=== PATIENT | female | born 1995 | race Caucasian/White ===

== ENCOUNTER 2024-04-02 09:47 | Emergency (ER) | payer BC, SELFPAY ==
--- NOTE | ~2024-04-02 | XR_ITS ---
EXAMINATION: XR ABDOMEN KUB CLINICAL INDICATION: Pain, constipation COMPARISON: None available. TECHNIQUE: AP view of the abdomen. FINDINGS: Moderate colonic stool. Nonobstructing bowel pattern. No suspicious calcification. XR/XR KUB IMPRESSION: Moderate colonic stool. Nonobstructing bowel pattern.
--- NOTE | 2024-04-02 10:03 | ED.GENADULT ---
HPI - General Adult General Chief complaint: Abdominal Pain Stated complaint: abd pain Time Seen by Provider: 04/02/24 09:55 Source: patient Mode of arrival: ambulatory Limitations: no limitations History of Present Illness ED Provider: ana DUBOIS narrative: Patient is a 29-year-old female presenting to the emergency department with complaint of lower abdominal pain since 1am. States she started her period on Sunday and had normal cramping, this pain feels different from that. Describes as a squeezing sensation. Last normal BM was Sunday, none since. Has been passing gas. Denies urinary urgency, frequency dysuria. Denies fevers, back or flank pain. Some nausea and forced herself to try to vomit this morning, nausea has since improved. Denies diarrhea. Denies other abnormal vaginal discharge. Denies recent unprotected intercourse or concern for STI. Rates current pain at 5/10. MD complaint: abdominal pain Onset (ago): hour(s) Location: abdomen Radiation: non-radiation Severity scale (1-10): 5 Quality: other ( squeezing ) Pain Consistency: colicky Associated symptoms: nausea/vomiting Treatments prior to arrival: none Related Data Previous Rx's ?Medication ?Instructions ?Recorded magnesium citrate 150 ml PO DAILY PRN constipation 04/02/24 #296 mL polyethylene glycol 3350 17 17 g PO DAILY #119 grams 04/02/24 gram/dose oral powder (Miralax) sennosides 8.6 mg capsule (senna) 8.6 mg PO BID PRN constipation #14 04/02/24 caps Allergies Allergy/AdvReac Type Severity Reaction Status Date / Time mite-Dermatophagoides Allergy Mild Nasal Verified 04/02/24 10:10 farinae, indira congestion [dust mite - [place]] Review of Systems Review of Systems: As per HPI Yes all other systems are reviewed and are negative Constitutional: Constitutional: Reports as per HPI PENDING SALE TO [facility] Social History Social History Advance Directives: No Advance Directives Information Provided: No Physical Exam ED Vital Signs: Vital Signs - 24 hr 04/02/24 10:09 04/02/24 12:00 Temperature 97.8 F 98.3 F Pulse Rate 87 63 Respiratory Rate 15 18 Blood Pressure 122/76 107/64 Pulse Oximetry 98 98 Oxygen Delivery Method Room Air Room Air BMI result Body Mass Index 28.2 Vital signs have been reviewed and appear to be correct. Blood pressure normal. Heart rate normal. Respiratory rate normal. Temperature normal. Oxygen saturation normal. Const General: cooperative, healthy appearing and no acute distress Orientation/consciousness: oriented to person, oriented to place, oriented to time and patient oriented x3 Limitations: no limitations HENMT Head: Yes normocephalic and Yes atraumatic Ears: external ears normal General nose exam: Normal external nose present Face and sinus: Yes face symmetric Mouth: oropharynx normal and moist mucous membranes Throat: Yes uvula midline Eyes Pupils: Equal, round and reactive pupils present Neck Neck: Yes normal visual inspection and Yes supple Resp Effort & Inspection: normal respiratory effort and able to speak in complete sentences Auscultation: clear to auscultation bilaterally Cardio Rate: regular rate Rhythm: regular rhythm Heart sounds: S1 normal heart sound present and S2 normal heart sound present GI Palpation (GI): Soft to palpation and nontender Auscultation: normoactive bowel sounds General: Yes no CVA tenderness Back/Spine/Pelvis Back: no CVA tenderness Skin General skin exam: elasticity normal and turgor normal Neuro General: oriented to person, oriented to place, oriented to time, patient oriented x3, moves all extremities, no focal motor deficits and CN's II-XI intact bilaterally Cranial nerves: Yes Equal, round and reactive pupils present Cognition (Neuro): normal cognition Extrem General: Yes full ROM, Yes no pedal edema and Yes no calf tenderness Psych Mental Status: mental status grossly normal Affect: normal affect Thought process: Normal thought process present Medical Decision Making Medical Decision Making MDM Narrative: Patient is a 29-year-old female presenting to the emergency department with complaint of lower abdominal pain since 1am. On exam patient is awake, A+Ox3, VS WNL, afebrile, normal neurological exam without focal deficits, physical exam findings as above. Given reported symptoms and physical exam findings, initial differential includes constipation, menstrual cramping, uterine fibroid, UTI. Less likely appendicitis, diverticulitis. Do not suspect ovarian torsion. Labs notable for no leukocytosis, no anemia, no significant electrolyte abnormalities, no evidence of VENECIA. Urinalysis is without evidence of infection. X-ray notable for moderate stool burden, no evidence of obstruction. My interpretation is in agreement with the radiologist's interpretation. Results discussed with patient and through shared decision making, additional imaging deferred. Will discharge patient with prescriptions for stool softners, advised adequate fluid intake. Follow up with PCP. Return precautions discussed. Patient verbalized understanding of and agreement with plan. Differential Diagnosis Differential Diagnoses: The differential diagnosis associated with the presentation includes As per [facility] Lab Data [facility] Lab Attestation statement: I reviewed the patient's lab results. As per [facility] 04/02/24 10:45 04/02/24 11:22 Labs: Lab Results 04/02/24 04/02/24 Range/Units 10:45 11:22 WBC 10.7 (4.8-10.8) X10*3/uL RBC 4.43 (4.20-5.50) X10*6/uL Hgb 13.0 (12.0-16.0) g/dl Hct 37.5 (37.0-47.0) % MCV 84.7 (80.0-98.0) fL MCH 29.3 (27.0-33.0) pg MCHC 34.7 (31.0-35.0) g/dl RDW 12.0 (11.0-16.0) % Plt Count 272 (160-400) X10*3/uL MPV 10.2 (9.4-12.3) fL Immature Gran % (Auto) 0.3 (0.0-0.4) % Neut % (Auto) 76.0 H (45-73) % Lymph % (Auto) 11.5 L (20-40) % [place] % (Auto) 10.7 (2-11) % Eos % (Auto) 1.2 (0-4) % Baso % (Auto) 0.3 (0-2) % Lymph # (Auto) 1.2 (1.2-4.9) X10*3/uL [place] # (Auto) 1.1 (0.1-1.2) X10*3/uL Eos # (Auto) 0.1 (0.0-0.4) X10*3/uL Baso # (Auto) 0.0 (0.0-0.2) X10*3/uL Abs Immat Gran (auto) 0.03 (0.00-0.03) X10*3/uL Absolute Neuts (auto) 8.1 (2.0-8.3) x10*3/uL Absolute Nucleated RBC 0.000 (0.0-0.012) X10*3/uL Nucleated RBC % (auto) 0.0 (0.0-0.2) /100WBC Sodium 140 (135-145) mmol/L Potassium 3.7 (3.3-5.1) mmol/L Chloride 109 H (96-108) mmol/L Carbon Dioxide 25 (22-29) mmol/L Anion Gap 10 L (12-20) BUN 11 (9-16) mg/dL Creatinine 0.67 (0.5-1.4) mg/dL Estim Creat Clear Calc 138.6 Estimated GFR > 60 Random Glucose 92 (60-115) mg/dL Calcium 9.6 (8.4-10.2) mg/dL Total Bilirubin 0.7 (0.0-1.0) mg/dL AST 16 (5-31) U/L ALT 11 (0-31) U/L Alkaline Phosphatase 52 (39-117) U/L Total Protein 6.8 (6.5-8.0) g/dL Albumin 4.3 (3.5-5.0) g/dL Beta HCG, Quant < 2 mIU/mL Urine Color Yellow Urine Appearance Clear Urine pH 7.5 (5.0-9.0) Ur Specific Cat[place] <= 1.005 (1.005-1.025) Urine Protein Negative (Neg-Trace) mg/dL Urine Glucose (UA) Negative (Negative) mg/dL Urine Ketones Negative (Negative) mg/dL Urine Blood Large (3+) H (Negative) Urine Nitrite Negative (Negative) Ur Leukocyte Esterase Negative (Negative) Urine RBC 3-5 H (0-2) /HPF Urine WBC 0-5 (0-5) /HPF Ur Squamous Epith Cells 0-2 (0-2) /HPF Urine Bacteria None Seen (None Seen) Hyaline Casts 0-2 (0-2) /LPF Independent Interpretation I performed an independent interpretation of an: Plain X-Ray Interpretation: Moderate stool burden noted on KUB Radiology Impression Discussion of test interpretation with radiology: I have reviewed the radiologist's reading. Radiologist Impression: XR/XR KUB IMPRESSION: Moderate colonic stool. Nonobstructing bowel pattern. External Record Review External record reviewed: Inpatient record, Office record and Outpatient record Prescription Management I considered prescription management with: Other Discharge Plan Discharge Clinical Impression: Abdominal pain, Constipation Patient Disposition: Home, Self-Care Instructions: Constipation (DC), High Fiber Diet (ED), Abdominal Pain (ED) Additional Instructions: You have been evaluated in the emergency department today for abdominal pain. This is likely due to constipation. Your evaluation did not show evidence of medical conditions requiring emergent intervention at this time. You are being prescribed medications for constipation, take these as prescribed. Start with the Miralax, then add senna if needed. If these are ineffective, you can try magnesium citrate, but as discussed, this medication works quickly so plan to remain at home after using this medication. Please schedule an appointment with your primary care physician. Follow up with gastroenterology for ongoing symptoms. Return to the emergency department if you experience worsening or uncontrolled pain, fevers 100.4? F or greater, recurrent vomiting, inability to tolerate food or fluids by mouth, bloody stools or vomit, black or tarry stools, or any other concerning symptoms. Prescriptions: New polyethylene glycol 3350 [Miralax] 17 gram/dose powder 17 g PO DAILY Qty: 119 0RF senna 8.6 mg capsule 8.6 mg PO BID PRN (Reason: constipation) Qty: 14 0RF magnesium citrate Solution 150 ml PO DAILY PRN (Reason: constipation) Qty: 296 0RF Referrals: [facility] [place] [facility] [Provider Group] Stand Alone Forms: Work/School Release Print Language: Frisian
[2024-04-02 10:09] VITALS: BP 122/76; PULSE 87; RESP 15; TEMP 36.6; O2SAT 98; BMI 28.2
[2024-04-02 10:53] LABS: MANUAL DIFF FLAG NO
[2024-04-02 10:56] LABS: Appearance Urine Clear; Basophils Percent Auto 0.3 % (0-2); Color Urine Yellow; Eosinophils Absolute Auto 0.1 X10*3/uL (0.0-0.4); Eosinophils Percent Auto 1.2 % (0-4); Glucose Urine UA Negative (Negative); Hematocrit 37.5 % (37.0-47.0); Imm Gran Abs Auto 0.03 X10*3/uL (0.00-0.03); Imm Gran Pct Auto 0.3 % (0.0-0.4); Leukocyte Esterase Urine Negative (Negative); Lymphocytes Absolute Auto 1.2 X10*3/uL (1.2-4.9); Lymphocytes Percent Auto 11.5 % (20-40); Mean Corpuscular HGB Conc 34.7 g/dl (31.0-35.0); Mean Corpuscular Hemoglobin 29.3 pg (27.0-33.0); Mean Corpuscular Volume 84.7 fL (80.0-98.0); Mean Platelet Volume 10.2 fL (9.4-12.3); Monocytes Absolute Auto 1.1 X10*3/uL (0.1-1.2); Monocytes Percent Auto 10.7 % (2-11); Neutrophils Absolute Auto 8.1 x10*3/uL (2.0-8.3); Nitrite Urine Negative (Negative); PH 7.5 (5.0-9.0); Platelet Count 272 X10*3/uL (160-400); Red Blood Count 4.43 X10*6/uL (4.20-5.50); Specific Gravity - Urine <= 1.005 (1.005-1.025); UMIC TRIGGER UACC YES; Urine Blood Large (3+) (Negative); Urine Ketones Negative (Negative); Urine Protein Negative (Neg-Trace); White Blood Count 10.7 X10*3/uL (4.8-10.8)
[2024-04-02 11:08] LABS: Bacteria Urine None Seen (None Seen); Hyaline Casts Urine 0-2 /LPF (0-2); Squamous Epithelial Cell Urine 0-2 /HPF (0-2); WBC Urine 0-5 /HPF (0-5)
[2024-04-02 12:00] VITALS: BP 107/64; PULSE 63; RESP 18; TEMP 36.8; O2SAT 98
[2024-04-02 12:01] LABS: Alanine Aminotransferase 11 U/L (0-31); Albumin Level 4.3 g/dL (3.5-5.0); Alkaline Phosphatase 52 U/L (39-117); Anion Gap 10 (12-20); Aspartate Amino Transferase 16 U/L (5-31); Bilirubin Total 0.7 mg/dL (0.0-1.0); Blood Urea Nitrogen 11 mg/dL (9-16); Calcium 9.6 mg/dL (8.4-10.2); Carbon Dioxide 25 mmol/L (22-29); Chloride 109 mmol/L (96-108); Creatinine Clr Calc Pharmacy 138.6; Estimated Glomerular Filt Rate > 60; Glucose Random 92 mg/dL (60-115); Potassium 3.7 mmol/L (3.3-5.1); Sodium 140 mmol/L (135-145); Total Protein 6.8 g/dL (6.5-8.0)
[2024-04-02 12:02] LABS: HCG Quantitative < 2 mIU/mL
[2024-04-02 15:20] VITALS: BP 94/63; PULSE 77; RESP 16; TEMP 37.1; O2SAT 97
== END 2024-04-02 15:21 | disposition home or self-care (01) ==
PROVIDERS: Registered Nurse Emergency; Emergency Provider Emergency Medicine; PCP Nurse Practitioner Family
DX: K59.00 Constipation, unspecified (principal); R10.2 Pelvic and perineal pain; R25.2 Cramp and spasm; R11.2 Nausea with vomiting, unspecified
CPT/HCPCS: 36415; 74018; 80053; 81001; 84702; 85025; 99283

== ENCOUNTER 2024-07-25 13:51 | Outpatient (AMB) | payer BC, SELFPAY ==
--- NOTE | 2024-07-25 13:56 | A.OFFVIS_ITS ---
Vital Signs 07/25/24 13:57 Height 5 ft 7 in Weight 165 lb 5.547 oz BMI 25.9 BP 107/67 Blood Pressure Location Lt brachial Position Sitting Pulse 59 Intake Visit Reasons: Constipation Intake Note: Vicki presents in the office as a new patient for constipation. CC: She states that her BMs are more frequent than before. Sometimes she will go a day now without going and sometimes she wont have as much come out but she has been cutting out dairy and gluten. Commercial Property Manager Required: No Allergies mite-Dermatophagoides farinae, indira [dust mite - [place]] Allergy (Mild, Verified 07/25/24 14:01) Nasal congestion HPI Comments Details: 29 y.o F with PMH of covid who is here for constipation. Started in Sep after she contracted covid and gave up coffee. PRev was having daily BM which were soft and voluminous. Now goes 3-5 times a week. BMs are also now hard and smaller. In March needed to go to ER for severe abd pain attributed to constipatio, which did get better after evacuating. For the past 3 weeks has been avoiding gluten and dairy which has made some difference. Diet: tries to incorporate fiber in her diet, estimates 20g/day. Metamucil Rxed by PCP but hasnt started yet. Hydration is adequate. When has not gone >3 days would take miralax which has had inconsistent response. Review of Systems Const All systems reviewed & are unremarkable except as noted in HPI and below Physical Exam Vital Signs: Last Vital Signs Pulse 59 07/25/24 13:57 BP 107/67 07/25/24 13:57 BMI result Body Mass Index 25.9 No apparent distress Nonicteric Abdomen soft, nondistended Alert and oriented x3, normal gait Assessment & Plan Assessment & Plan (1) Change in stool: Code(s): R19.5 - Other fecal abnormalities Category: Medical (2) Constipation: Code(s): K59.00 - Constipation, unspecified Category: Medical Plan Overall consistent with CIC. Given recent change within a year, will also r.o thyroid abnl, IBD, celiac. Pt also wonders about food allergies and was encouraged to review this further with computer customer support specialist. Plan: - Increase fiber for goal 25-30g/day - Take miralax once daily or titrate to effect - Elevate legs while having BM - Labs as below - No red flags to warrant endoscopic evaluation at this time Follow up if actionable findings on labs Orders: Orders Complete Blood Count no Diff Today R19.5 - Other fecal abnormalities Immunoglobulin A Today R19.5 - Other fecal abnormalities Transglutaminase IgA Today R19.5 - Other fecal abnormalities Calprotectin, Fecal Today R19.5 - Other fecal abnormalities C Reactive Protein Today R19.5 - Other fecal abnormalities TSH reflex Free T4 Today R19.5 - Other fecal abnormalities Medications: Discontinued sennosides (senna) Discontinued Reason: Patient Completed Course 8.6 mg PO BID PRN 14 caps 0RF constipation polyethylene glycol 3350 (Miralax) Discontinued Reason: Patient Completed Course 17 grams PO DAILY 119 grams 0RF Coding Level of Care Code New Pt Level 4 (95848) Diagnoses Change in stool R19.5 Constipation K59.00
[2024-07-25 13:57] VITALS: BP 107/67; PULSE 59; BMI 25.9
== END 2024-07-25 14:49 | disposition home or self-care (01) ==
PROVIDERS: PCP Nurse Practitioner Family; Visit Provider Internal Medicine
DX: R19.5 Other fecal abnormalities (principal); K59.00 Constipation, unspecified
CPT/HCPCS: 99204

== ENCOUNTER 2024-07-25 13:51 | Outpatient (REF) | payer BC, SELFPAY ==
[2024-07-25 15:22] LABS: Hematocrit 36.8 % (37.0-47.0); Hemoglobin 12.6 g/dl (12.0-16.0); Mean Corpuscular HGB Conc 34.2 g/dl (31.0-35.0); Mean Corpuscular Hemoglobin 28.7 pg (27.0-33.0); Mean Corpuscular Volume 83.8 fL (80.0-98.0); Mean Platelet Volume 10.5 fL (9.4-12.3); Platelet Count 306 X10*3/uL (160-400); Red Blood Count 4.39 X10*6/uL (4.20-5.50); Red Cell Distribution Width 12.3 % (11.0-16.0); White Blood Count 5.2 X10*3/uL (4.8-10.8)
[2024-07-25 16:13] LABS: C Reactive Protein < 0.04 mg/dL (< or = 0.50)
[2024-07-25 16:30] LABS: TSH reflex Free T4 1.04 uIU/mL (0.32-4.0)
[2024-07-28 09:04] LABS: Immunoglobulin A 212 mg/dL (47-310)
[2024-07-28 21:32] LABS: Transglutaminase IgA <1.0 U/mL
== END 2024-07-25 13:52 | disposition home or self-care (01) ==
LOC: HO.LAB 13:51
PROVIDERS: PCP Nurse Practitioner Family; Visit Provider Internal Medicine
DX: R19.5 Other fecal abnormalities (principal); K59.00 Constipation, unspecified
CPT/HCPCS: 36415; 82784; 84443; 85027; 86140; 86364

== ENCOUNTER 2024-07-28 10:45 | Outpatient (REF) | payer BC, SELFPAY ==
[2024-08-05 20:09] LABS: Calprotectin, Fecal 8 mcg/g
== END 2024-07-28 10:46 | disposition home or self-care (01) ==
LOC: HO.LNP 10:45
PROVIDERS: Visit Provider Internal Medicine
DX: R19.5 Other fecal abnormalities (principal)
CPT/HCPCS: 83993